=== PATIENT | male | born 1990 | race Caucasian/White ===

== ENCOUNTER 2016-03-25 18:16 | Emergency (ER) | payer OTHER ==
[2016-03-25] MEDS ORDERED: ED CLINDAMYCIN PREMIX 50 ML IV ONE (19:02)
[2016-03-25] MEDS ORDERED: KETOROLAC 30 MG/ML VIAL ONE (19:19)
== END 2016-03-25 21:18 | disposition home or self-care (01) ==
LOC: ER 18:16
DX: L03.116 Cellulitis of left lower limb (principal)
CPT/HCPCS: 36415 ×2; 73562; 80048 ×2; 85025 ×2; 96365 ×2; 96375 ×2; 99284; J1885